=== PATIENT | female | born 1985 | race Caucasian/White ===

== ENCOUNTER 2023-12-23 08:55 | Day surgery (SDC) | payer BC ==
[2023-12-23] MEDS ORDERED: BUPIVACAINE 0.5% VIAL IJ ONE (08:56)
[2023-12-23] MEDS ORDERED: Depo-Medrol 40 MG/ML IM ONE (08:56)
[2023-12-23] MEDS ORDERED: DIPRIVAN 200 MG/20 ML IV ONE (12:09)
[2023-12-23] MEDS ORDERED: Lactated Ringers 1,000 ML IV ONE (15:02)
--- NOTE | 2023-12-23 15:20 | XRAY ---
21 seconds of fluoroscopy was used in surgery for a right intra-articular shoulder injection.
--- NOTE | 2023-12-23 15:20 | XRAY ---
Indication: Right shoulder injection. Intraoperative fluoroscopy provided for 21 seconds. Single digital spot images submitted for interpretation demonstrates needle tip projecting over the right glenohumeral joint superiorly. Small amount of contrast injected for needle tip placement. Correlate with intraoperative findings/report.
== END 2023-12-23 12:40 | disposition home or self-care (01) ==
LOC: SDC-PAIN 08:55
PROVIDERS: ATTEND Psychiatry & Neurology Pain Medicine
DX: M19.011 Primary osteoarthritis, right shoulder (principal); E11.9 Type 2 diabetes mellitus without complications
CPT/HCPCS: 20610; 73030; 77002; 82947; J1030; J2704; Q9966

== ENCOUNTER 2024-11-03 07:51 | Day surgery (SDC) | payer BC ==
[2024-11-03] MEDS ORDERED: BUPIVACAINE 0.5% VIAL IJ ONE (07:52)
[2024-11-03] MEDS ORDERED: Depo-Medrol 40 MG/ML IM ONE (07:52)
[2024-11-03] MEDS ORDERED: propofoL IV ONE (09:11)
--- NOTE | 2024-11-03 09:49 | XRAY ---
Indication: Left shoulder injection. Intraoperative fluoroscopy provided for 8 seconds. Single digital spot image submitted for interpretation demonstrates needle tip projecting over left glenohumeral joint superiorly. Small amount of contrast injected for needle tip placement. Correlate with intraoperative findings/report.
--- NOTE | 2024-11-03 10:29 | XRAY ---
8 seconds of fluoroscopy was used in surgery for a left intra-articular shoulder injection.
== END 2024-11-03 09:45 | disposition home or self-care (01) ==
LOC: SDC-PAIN 07:51
PROVIDERS: ATTEND Psychiatry & Neurology Pain Medicine
DX: M19.012 Primary osteoarthritis, left shoulder (principal); E11.9 Type 2 diabetes mellitus without complications; M19.011 Primary osteoarthritis, right shoulder
CPT/HCPCS: 20610; 73030; 77002; 82947; J2704; Q9966

== ENCOUNTER 2025-02-16 08:47 | Day surgery (SDC) | payer BC ==
[2025-02-16] MEDS ORDERED: LIDOCAINE HCL 2% 100 MG/5 ML IJ ONE (08:48)
[2025-02-16] MEDS ORDERED: Lactated Ringers 1,000 ML IV ONE (10:29)
[2025-02-16] MEDS ORDERED: propofoL IV ONE ×2 (10:34→10:44)
--- NOTE | 2025-02-16 11:50 | XRAY ---
Indication: Left C2-C4 MBB. Intraoperative fluoroscopy provided for 12 seconds. 2 digital spot image submitted for interpretation demonstrates posterior needle tips projecting over expected left C2-C4 nerve roots. Correlate with intraoperative findings/report.
--- NOTE | 2025-02-16 12:23 | XRAY ---
12 seconds of fluoroscopy was used in surgery for a left C2-C4 MBB.
== END 2025-02-16 11:17 | disposition home or self-care (01) ==
LOC: SDC-PAIN 08:47
PROVIDERS: ATTEND Psychiatry & Neurology Pain Medicine
DX: M47.812 Spondylosis without myelopathy or radiculopathy, cervical region (principal); E11.9 Type 2 diabetes mellitus without complications
CPT/HCPCS: 64490; 64491; 72040; 82947; J2704

== ENCOUNTER 2025-07-05 07:54 | Day surgery (SDC) | payer BC ==
[2025-07-05] MEDS ORDERED: LIDOCAINE HCL 1% 50 MG/5 ML VL IJ ONE (07:55)
[2025-07-05] MEDS ORDERED: BUPIVACAINE 0.5% VIAL IJ ONE (07:55)
[2025-07-05] MEDS ORDERED: propofoL IV ONE (09:24)
[2025-07-05] MEDS ORDERED: Lactated Ringers 1,000 ML IV ONE (10:35)
--- NOTE | 2025-07-05 11:55 | XRAY ---
Indication: Left C2-C4 RFA. Intraoperative fluoroscopy provided for 32 seconds. 4 digital spot image submitted for interpretation demonstrates posterior needle tips projecting over expected left C2-C4 nerve roots. Correlate with intraoperative findings/report.
--- NOTE | 2025-07-05 12:56 | XRAY ---
32 seconds of fluoroscopy was used in surgery for a left C2-C4 RFA.
== END 2025-07-05 10:04 | disposition home or self-care (01) ==
LOC: SDC-PAIN 07:54
PROVIDERS: ATTEND Psychiatry & Neurology Pain Medicine
DX: M47.812 Spondylosis without myelopathy or radiculopathy, cervical region (principal); E11.9 Type 2 diabetes mellitus without complications